=== PATIENT | female | born 1980 | race Caucasian/White ===

== ENCOUNTER 2017-12-11 15:27 | Emergency (ER) | payer OTHER ==
[2017-12-11 16:15] VITALS: PULSE 86; O2SAT 100
[2017-12-11] MEDS ORDERED: XYLOCAINE 1% HCL 20 ML MDV IJ ONE (16:21)
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
[2017-12-11] MEDS ORDERED: Augmentin 875-125 Tablet PO ONE (17:28)
[2017-12-11] MEDS ORDERED: Augmentin 875-125 Tablet ONE (17:34)
[2017-12-11 17:48] VITALS: BP 124/80
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
== END 2017-12-11 17:47 | disposition home or self-care (01) ==
LOC: ED 15:27
PROC: 0HQFXZZ Repair Right Hand Skin, External Approach (ICD-10-PCS; principal; 2017-12-11)
DX: S61.411A Laceration without foreign body of right hand, initial encounter (principal); W22.8XXA Striking against or struck by other objects, initial encounter; V86.95XA Unspecified occupant of 3- or 4- wheeled all-terrain vehicle (ATV) injured in nontraffic accident, initial encounter
CPT/HCPCS: 12001; 73130; 96372; 99283; 99284; A9270-GY